=== PATIENT | female | born 1975 | race Caucasian/White ===

== ENCOUNTER → 2017-06-05 | Outpatient (CLI) | payer BC ==
--- NOTE | 2017-06-08 17:03 | Diagnostic Imaging Report ---
Bilateral screening mammogram 2D views with tomosynthesis. The current study was also evaluated with a Computer Aided Detection (CAD) system. INDICATION: Screening. No current complaints stated on the questionnaire. COMPARISON: 03/07/2016. FINDINGS: The breasts are composed of heterogeneously dense parenchyma which may decrease mammographic sensitivity. Tomographic views of the right MLO projection demonstrate oval asymmetries measuring around 8 mm each in the upper and lower posterior aspect of the right breast on image 27/100. The left breast demonstrates no definite change. IMPRESSION: There are asymmetries seen on image 27/100 in the right MLO tomographic views. Evaluation with true lateral right breast mammogram and tomography, and ultrasound is recommended for further evaluation. ACR BI-RADS Category 0: Incomplete. (Needs additional imaging evaluation). Result letter will be mailed to the patient. Note: At least 10% of breast cancer is not imaged by mammography. Dictated by: Dictated on workstation # [id number]
== END ==
LOC: RAD 14:11
PROVIDERS: ATTEND Nurse Practitioner Family
DX: Z12.31 Encounter for screening mammogram for malignant neoplasm of breast (principal)
CPT/HCPCS: 77067

== ENCOUNTER → 2017-06-19 | Outpatient (CLI) | payer BC ==
--- NOTE | 2017-06-19 09:00 | Diagnostic Imaging Report ---
EXAMINATION: Right breast diagnostic mammogram and tomography. INDICATION: Asymmetries along the right lower aspect of the right ML view. The current study was also evaluated with a Computer Aided Detection (CAD) system. FINDINGS: In the lateral projection the previously seen asymmetries on the MLO view are not well seen. This may relate to summation artifact of the relatively dense background parenchyma. IMPRESSION: No definite underlying lesion is seen in the true lateral projection. Ultrasound evaluation pending. BI-RADS 0. ACR BI-RADS Category 0: Incomplete. (Needs additional imaging evaluation). Result letter will be mailed to the patient. Note: At least 10% of breast cancer is not imaged by mammography. Dictated by: Dictated on workstation # [id number]
--- NOTE | 2017-06-19 17:40 | Diagnostic Imaging Report ---
EXAMINATION: Right breast ultrasound. INDICATION: Asymmetries in the upper and lower aspects of the right breast. FINDINGS: The four quadrants and retroareolar region of the right breast were scanned with no underlying abnormality seen. IMPRESSION: Negative study. The asymmetries in the upper and lower aspects of the right breast are probably related to summation artifact of parenchyma. A six-month followup mammogram is recommended to reevaluate. ACR BI-RADS Category 3: Probably benign findings. Result letter will be mailed to the patient. Note: At least 10% of breast cancer is not imaged by mammography. Dictated by: Dictated on workstation # [id number]
== END ==
LOC: RAD 08:38
PROVIDERS: ATTEND Family Medicine
DX: N64.89 Other specified disorders of breast (principal)
CPT/HCPCS: 76641

== ENCOUNTER → 2018-01-04 | Outpatient (CLI) | payer BC ==
--- NOTE | 2018-01-04 20:16 | Diagnostic Imaging Report ---
INDICATION: Six-month follow-up right breast densities. Correlation is made with prior exams from 06/05/2017 and 03/07/2016. The current study was also evaluated with a Computer Aided Detection (CAD) system. FINDINGS: CC, MLO, and mediolateral views of the right breast are obtained using 3D mammography. Right breast is heterogeneously dense, limiting the sensitivity of mammography. The density noted in the superior and inferior aspect of the right breast best seen on the MLO view is not appreciated on today's study and most likely represents superimposed tissue. No mass or malignant-appearing microcalcifications are seen. The right axilla is unremarkable. IMPRESSION: No mammographic features suspicious for malignancy. Patient may return to routine annual screening mammography in May 2018. ACR BI-RADS Category 1: Negative. Result letter will be mailed to the patient. Note: At least 10% of breast cancer is not imaged by mammography. Dictated by: Dictated on workstation # [id number]
== END ==
LOC: RAD 12:44
PROVIDERS: ATTEND Nurse Practitioner Family
DX: R92.2 Inconclusive mammogram (principal)

== ENCOUNTER → 2018-08-12 | Outpatient (CLI) | payer BC ==
--- NOTE | 2018-08-12 12:30 | Diagnostic Imaging Report ---
INDICATION: Routine screening. COMPARISON is made with prior mammogram from 06/05/2017 and 03/07/2016. 2D and 3D bilateral screening mammography was performed with CAD. Both breasts are heterogeneously dense, limiting the sensitivity of mammography. The parenchymal pattern appears stable. No new mass or malignant-appearing microcalcifications are seen. The axillae are unremarkable. IMPRESSION: BI-RADS category 1. No mammographic features suspicious for malignancy are identified. ACR BI-RADS Category 1: Negative. Result letter will be mailed to the patient. Note: At least 10% of breast cancer is not imaged by mammography. Dictated by: Dictated on workstation # [id number]
== END ==
LOC: RAD 07:31
PROVIDERS: ATTEND Nurse Practitioner Family
DX: Z12.31 Encounter for screening mammogram for malignant neoplasm of breast (principal)
CPT/HCPCS: 77067

== ENCOUNTER → 2019-08-30 | Outpatient (CLI) | payer BC ==
--- NOTE | 2019-08-30 12:43 | Diagnostic Imaging Report ---
Indication: Routine screening. Comparison is made with prior mammogram from 08/12/2018 and 06/05/2017. 2-D and 3-D bilateral screening mammography was performed with computer aided detection. Both breasts remain heterogeneously dense, limiting the sensitivity of mammography. The overall parenchymal pattern appears stable. No mass or malignant-appearing microcalcifications are seen. The axillae are unremarkable. IMPRESSION: BI-RADS Category 1 No mammographic features suspicious for malignancy are identified. ACR BI-RADS Category 1: Negative. Result letter will be mailed to the patient. Note: At least 10% of breast cancer is not imaged by mammography. Dictated by: Dictated on workstation # [id number]
== END ==
LOC: RAD 07:52
PROVIDERS: ATTEND Nurse Practitioner Family
DX: Z12.31 Encounter for screening mammogram for malignant neoplasm of breast (principal)
CPT/HCPCS: 77067

== ENCOUNTER → 2020-10-23 | Outpatient (CLI) | payer BC ==
--- NOTE | 2020-10-24 09:40 | Diagnostic Imaging Report ---
INDICATION: Routine screening. COMPARISON: 08/30/2019 and 08/12/2018. TECHNIQUE: 2D and 3D bilateral screening mammography was performed with CAD. FINDINGS: Both breasts are heterogeneously dense, limiting the sensitivity of mammography. The parenchymal pattern is stable. No mass or malignant appearing microcalcifications are seen. The axillae are unremarkable. IMPRESSION: No mammographic features suspicious for malignancy are identified. ACR BI-RADS Category 1: Negative. Result letter will be mailed to the patient. Note: At least 10% of breast cancer is not imaged by mammography. Dictated by: Dictated on workstation # [id number]
== END ==
LOC: RAD 12:56
PROVIDERS: ATTEND Family Medicine
DX: Z12.31 Encounter for screening mammogram for malignant neoplasm of breast (principal)
CPT/HCPCS: 77063; 77067

== ENCOUNTER 2021-04-14 04:08 | Emergency (ER) | payer BC ==
[~2021-04-14] VITALS: Ht 170.1 cm; Wt 88.4 kg
[2021-04-14] MEDS ORDERED: KETOROLAC 30 MG/ML VIAL IVP STA (04:40)
[2021-04-14 04:42] LABS: BILIRUBIN,URINE NEGATIVE (NEGATIVE); COLOR,URINE RED; GLUCOSE, URINE (UA) NEGATIVE (NEGATIVE); KETONES,URINE 1+ (NEGATIVE); LEUKOCYTE ESTERASE ,URINE 2+ (NEGATIVE); NITRITE,URINE POSITIVE (NEGATIVE); PH,URINE 6.5 (5-9); PROTEIN,URINE 3+ (NEGATIVE)
[2021-04-14] MEDS ORDERED: LACTATED RINGERS 1,000 ML IV ONE ×2 (04:45→06:45)
[2021-04-14] MEDS ORDERED: ONDANSETRON 4 MG/2 ML (SDV) Z0FRAN IVP ONE (04:45)
--- NOTE | 2021-04-14 04:47 | ED GU-Female ---
General Chief Complaint: Abdominal/GI Problems Stated Complaint: BLOOD IN URINE/L SIDE BACK PAIN Source: patient History of Present Illness Date Seen by Provider: April 14, 2021 Time Seen by Provider: 04:30 Initial Comments PT ARRIVES VIA POV FROM HOME PT STATES ON THURSDAY MORNING AROUND 10 AM, SHE NOTICED BLOOD AND "TISSUE" IN HER URINE WENT TO [facility] YESTERDAY AFTER NOON FOR CONTINUED BLOOD AND TISSUE IN HER URINE, HAD LAB AND UA DONE, AND WAS PLACED ON MACROBID. HAS HAD ONE DOSE OF THE ANTIBIOTIC AROUND 0345 THIS AM, SHE WOKE UP WITH LEFT FLANK PAIN NO RADIATION OF PAIN HAS HAD NAUSEA, NO VOMITING NO FEVER/SWEATS/CHILLS THIS AM IT WAS DIFFICULT TO VOID--HAD URGE, BUT COULD NOT GO INITIALLY. NO PAIN/BURNING ON URINATION HAS NOT TAKEN ANYTHING FOR PAIN NO HISTORY OF SIMILAR NO PRIOR ABDOMINAL SURGERIES LMP 04/03/21. NORMAL. NO CONTROL PCP: DR. BURGER Allergies and Home Medications Allergies Coded Allergies: No Known Drug Allergies (Unverified , 04/14/21) Patient Home Medication List Home Medication List Reviewed: Yes Review of Systems Review of Systems Constitutional: no symptoms reported, weight loss (INTENTIONAL WEIGHT LOSS OF 40 LBS IN LAST 4-5 MONTHS) Respiratory: no symptoms reported Cardiovascular: no symptoms reported Gastrointestinal: see HPI, nausea Genitourinary: see HPI, flank pain, hematuria LMP: April 03, 2021 Musculoskeletal: see HPI, back pain Skin: no symptoms reported Psychiatric/Neurological: No Symptoms Reported Past Lfddhya-Othqof-Dnrmbd Hx Past Med/Social Hx: Reviewed and Corrections made Patient Social History Alcohol Use: Denies Use Drug of Choice: DENIES Smoking Status: Never a Smoker Past Medical History Surgeries: No Respiratory: No Cardiac: No Neurological: No : No Reproductive Disorders: No Genitourinary: No Gastrointestinal: No Musculoskeletal: Yes (L3 COMPRESSION FX--NO TREATMENT) Fractures Endocrine: No HEENT: No Cancer: No Psychosocial: No Integumentary: No Blood Disorders: No Physical Exam Vital Signs Vital Signs - First Documented 04/14/21 04/14/21 04:28 08:51 Temp 36.7 Pulse 90 Resp 20 B/P (MAP) 154/92 (112) Pulse Ox 98 O2 Delivery Room Air Capillary Refill : Height, Weight, BMI Height: '" Weight: lbs. oz. kg; BMI Method: General Appearance: WD/WN, no apparent distress, other (DOES NOT APPEAR TO BE IN ANY DISCOMFORT OR DISTRESS. WALKS UPRIGHT AND MOVES WITHOUT DIFFICULTY) Cardiovascular: regular rate, rhythm, no murmur Respiratory: normal breath sounds Gastrointestinal: normal bowel sounds, soft, no organomegaly, no pulsatile mass; No distended, No guarding, No rebound; tenderness (VERY MILD LEFT FLANK TENDERNESS); No hernia, No mass Back: no vertebral tenderness, CVA tenderness (L) Extremities: normal inspection Neurologic/Psychiatric: nutrition intern II-XII nml as tested, no motor/sensory deficits, alert, normal mood/affect, oriented x 3 Skin: normal color, warm/dry; No rash Progress/Results/Core Measures Suspected Sepsis SIRS Temperature: Pulse: Respiratory Rate: Laboratory Tests 04/14/21 04:48: White Blood Count 10.0 Blood Pressure / Mean: Laboratory Tests 04/14/21 04:48: Creatinine 0.82, Platelet Count 287, Total Bilirubin 0.3 Results/Orders Lab Results Laboratory Tests Test 04/14/21 04:33 04/14/21 04:40 04/14/21 04:48 Range/Units Urine Color RED H Urine Clarity BLOODY H Urine pH 6.5 5-9 Urine Specific [place] 1.020 1.016-1.022 Urine Protein 3+ H NEGATIVE Urine Glucose (UA) NEGATIVE NEGATIVE Urine Ketones 1+ H NEGATIVE Urine Nitrite POSITIVE H NEGATIVE Urine Bilirubin NEGATIVE NEGATIVE Urine Urobilinogen 2.0 < = 1.0 MG/DL Urine Leukocyte Esterase 2+ H NEGATIVE Urine RBC (Auto) 3+ H NEGATIVE Urine RBC TNTC H /HPF Urine WBC 5-10 H /HPF Urine Squamous Epithelial Cells 2-5 /HPF Urine Crystals NONE /LPF Urine Bacteria FEW H /HPF Urine Casts NONE /LPF Urine Mucus NEGATIVE /LPF Urine Culture Indicated YES Urine Test NEGATIVE NEGATIVE White Blood Count 10.0 4.3-11.0 10^3/uL Red Blood Count 4.69 3.80-5.11 10^6/uL Hemoglobin 12.9 11.5-16.0 g/dL Hematocrit 41 35-52 % Mean Corpuscular Volume 87 80-99 fL Mean Corpuscular Hemoglobin 28 25-34 pg Mean Corpuscular Hemoglobin Concent 32 32-36 g/dL Red Cell Distribution Width 13.9 10.0-14.5 % Platelet Count 287 130-400 10^3/uL Mean Platelet Volume 11.2 9.0-12.2 fL Immature Granulocyte % (Auto) 0 % Neutrophils (%) (Auto) 63 42-75 % Lymphocytes (%) (Auto) 29 12-44 % Monocytes (%) (Auto) 6 0-12 % Eosinophils (%) (Auto) 1 0-10 % Basophils (%) (Auto) 1 0-10 % Neutrophils # (Auto) 6.3 1.8-7.8 10^3/uL Lymphocytes # (Auto) 2.9 1.0-4.0 10^3/uL Monocytes # (Auto) 0.6 0.0-1.0 10^3/uL Eosinophils # (Auto) 0.1 0.0-0.3 10^3/uL Basophils # (Auto) 0.1 0.0-0.1 10^3/uL Immature Granulocyte # (Auto) 0.0 0.0-0.1 10^3/uL Sodium Level 141 135-145 MMOL/L Potassium Level 3.8 3.6-5.0 MMOL/L Chloride Level 107 98-107 MMOL/L Carbon Dioxide Level 23 21-32 MMOL/L Anion Gap 11 5-14 MMOL/L Blood Urea Nitrogen 14 7-18 MG/DL Creatinine 0.82 0.60-1.30 MG/DL Estimat Glomerular Filtration Rate > 60 BUN/Creatinine Ratio 17 Glucose Level 100 70-105 MG/DL Calcium Level 8.8 8.5-10.1 MG/DL Corrected Calcium 8.8 8.5-10.1 MG/DL Total Bilirubin 0.3 0.1-1.0 MG/DL Aspartate Amino Transf (AST/SGOT) 63 H 5-34 U/L Alanine Aminotransferase (ALT/SGPT) 14 0-55 U/L Alkaline Phosphatase 57 40-136 U/L Total Protein 6.7 6.4-8.2 GM/DL Albumin 4.0 3.2-4.5 GM/DL Amylase Level 56 25-125 U/L Lipase 14 8-78 U/L My Orders Orders - MORRIS CARRILLO DO Ua Culture If Indicated (04/14/21 04:32) Ed Iv/Invasive Line Start (04/14/21 04:40) Ct Abd/Pelvis Wo(Kidney Stone) (04/14/21 04:40) Abdomen/Kub 1view (04/14/21 04:40) Amylase (04/14/21 04:40) Cbc With Automated Diff (04/14/21 04:40) Comprehensive Metabolic Panel (04/14/21 04:40) Hcg,Qualitative Urine (04/14/21 04:40) Lipase (04/14/21 04:40) Ed Iv/Invasive Line Start (04/14/21 04:40) Lactated Ringers (Lr 1000 Ml Iv Solution (04/14/21 04:45) Ondansetron Injection (Zofran Injectio (04/14/21 04:45) Ketorolac Injection (Toradol Injection) (04/14/21 04:40) Urine Culture (04/14/21 04:33) Ceftriaxone For Iv Use (Rocephin For I (04/14/21 05:30) Ed Iv/Invasive Line Start (04/14/21 06:41) Lactated Ringers (Lr 1000 Ml Iv Solution (04/14/21 06:45) Medications Given in ED Current Medications Medications Dose Ordered Sig/Ana Route Start Time Stop Time Status Last Admin Dose Admin Lactated Ringer's 1,000 ml @ 0 mls/hr Q0M ONCE IV 04/14/21 06:45 04/14/21 06:46 DC 04/14/21 06:51 1,000 MLS/HR Vital Signs/I&O 04/14/21 08:51 Pulse 85 Resp 14 B/P (MAP) 150/92 Pulse Ox 98 O2 Delivery Room Air Capillary Refill : Progress Note : Progress Note GIVEN IV FLUIDS, TORADOL AND ZOFRAN WITH COMPLETE RELIEF OF SYMPTOMS GAVE ROCEPHIN FOR UTI NO DETERIORATION IN PT'S CONDITION DURING ER STAY Diagnostic Imaging Comments KUB--NON-SPECIFIC BOWEL GAS PATTERN, LEFT SIDED ABDOMINAL MASS. PENDING RADIOLOGIST REVIEW CT ABDOMEN/PELVIS--15 X 10.5 X 11.5 CM SOLID LEFT RENAL MASS WITH LARGE CENTRAL SCAR WITH CALCIFICATIONS, LARGE PERIRENAL TRAINING VESSELS, BLOOD PRODUCTS IN LEFT RENAL COLLECTING SYSTEM PRODUCING MILD LEFT HYDRONEPHROSIS. DIFFERENTIAL DX ONCOCYTOMA VS RENAL CELL CARCINOMA--PER [facility] VIA FAX AT 0603 Reviewed: Reviewed by Oh Departure Communication (Admissions) 0610--CALLED [facility], PT/FAMILY PREFERENCE. XRAY DEPT IS CLOUDING IMAGES TO [facility]. THEY WILL CALL BACK 0609--[facility] CALLED BACK, PT HAS BEEN ACCEPTED FOR ADMIT BY DR. WOMACK Impression Primary Impression: LARGE LEFT RENAL MASS Additional Impression: Urinary tract infection with hematuria Disposition: XFER SHT-TRM HOSP Condition: Improved Transfer Transfer Reason: Exceeds level of care Transfer Facility: Method of Transfer: EMS Departure-Patient Inst. Referrals: LIBRA BURGER MD (PCP/Family) Primary Care Physician MORRIS CARRILLO DO April 14, 2021 04:46
[2021-04-14 04:51] LABS: BACTERIA,URINE FEW /HPF; RBC,URINE TNTC /HPF
[2021-04-14 04:52] LABS: CLARITY,URINE BLOODY
[2021-04-14 05:01] LABS: BASOPHILS # (AUTO) 0.1 10^3/uL (0.0-0.1); BASOPHILS % (AUTO) 1 % (0-10); EOSINOPHILS # (AUTO) 0.1 10^3/uL (0.0-0.3); EOSINOPHILS % (AUTO) 1 % (0-10); HEMATOCRIT 41 % (35-52); HEMOGLOBIN 12.9 g/dL (11.5-16.0); LYMPHOCYTES # (AUTO) 2.9 10^3/uL (1.0-4.0); LYMPHOCYTES % (AUTO) 29 % (12-44); MEAN CORPUSCULAR HEMOGLOBIN 28 pg (25-34); MEAN CORPUSCULAR HGB CONC 32 g/dL (32-36); MEAN CORPUSCULAR VOLUME 87 fL (80-99); MEAN PLATELET VOLUME 11.2 fL (9.0-12.2); MONOCYTES # (AUTO) 0.6 10^3/uL (0.0-1.0); MONOCYTES % (AUTO) 6 % (0-12); NEUTROPHILS # (AUTO) 6.3 10^3/uL (1.8-7.8); NEUTROPHILS % (AUTO) 63 % (42-75); PLATELET COUNT 287 10^3/uL (130-400)
[2021-04-14 05:16] LABS: CHLORIDE 107 MMOL/L (98-107); POTASSIUM 3.8 MMOL/L (3.6-5.0); SODIUM 141 MMOL/L (135-145)
[2021-04-14 05:17] LABS: AMYLASE 56 U/L (25-125); CALCIUM 8.8 MG/DL (8.5-10.1)
[2021-04-14 05:18] LABS: GLUCOSE 100 MG/DL (70-105); TOTAL PROTEIN 6.7 GM/DL (6.4-8.2)
[2021-04-14 05:19] LABS: CARBON DIOXIDE 23 MMOL/L (21-32)
[2021-04-14 05:20] LABS: BILIRUBIN,TOTAL 0.3 MG/DL (0.1-1.0)
[2021-04-14 05:22] LABS: ALKALINE PHOSPHATASE 57 U/L (40-136); CREATININE SERUM 0.82 MG/DL (0.60-1.30); GFR ESTIMATED > 60
[2021-04-14 05:23] LABS: BUN/CREATININE RATIO 17
[2021-04-14 05:25] LABS: ALANINE AMINOTRANSFERASE 14 U/L (0-55); LIPASE 14 U/L (8-78)
[2021-04-14] MEDS ORDERED: cefTRIAXone FOR IV USE 1,000 MG in WATER (STERILE) FOR INJECTION 10 ML IV ONE (05:30)
--- NOTE | 2021-04-14 06:36 | Diagnostic Imaging Report ---
2 AP views of the abdomen. INDICATION: Evaluate for renal calculi. Flank pain. Hematuria. Correlation made to CT examination from earlier the same day. Findings: Prominent left renal shadow is demonstrated compatible with the patient's known renal mass. The calcifications along the anterior margins of the mid aspect of the mass are partially visualized but less well delineated on the prior CT. There are no findings to suggest a stone along the course of the ureters. The bowel gas pattern is nonobstructive. The lung bases are clear. There is a rotatory dextroscoliosis. IMPRESSION: 1. Partial visualization of the calcifications associated with the patient's known left sided renal mass. Prominent inferior margins of the renal shadow on the left are noted. There is no stone evident on the course of the ureters. The bowel gas pattern appears nonobstructed. Dictated by: Dictated on workstation # [id number]
--- NOTE | 2021-04-14 07:41 | Diagnostic Imaging Report ---
PROCEDURE: CT urinary tract, rule out kidney stone. TECHNIQUE: Multiple contiguous axial images were obtained through the abdomen and pelvis without the use of intravenous contrast. Auto Exposure Controls were utilized during the CT exam to meet ALARA standards for radiation dose reduction. INDICATION: Flank pain and hematuria. No relevant comparison is available. FINDINGS: The lung bases appear clear without infiltrate or effusion. There is no suspicious basilar pulmonary nodule. There is no pericardial collection. The noncontrast appearance of the liver unremarkable. The gallbladder is nondilated without radiodense gallstones or findings of biliary dilatation. The pancreas appears unremarkable. The spleen is normal in size. There are no findings of an adrenal mass. Right kidney nonobstructed and unremarkable. The left kidney demonstrates a large solid left renal mass that measures up to 15 cm in craniocaudal dimensions by axial dimensions of 10.5 x 1.5 cm. There appears to be a low-density central scar as well as central calcifications. Note is made of some prominent perirenal vasculature which may be arterial or draining veins. There is hyperdensity demonstrated within the left-sided collecting system that additionally likely reflects some blood products. There is mild left hydronephrosis particularly within the upper aspect of the left kidney. There are no findings of bowel obstruction. The appendix is normal in caliber. There is moderate stool within the colon. There is no free fluid within the pelvis. The bladder nondistended. The uterus and adnexa unremarkable by CT. Pathologically enlarged lymph nodes are evident. Aorta is normal in caliber. There is rotatory dextroscoliosis about the lumbar spine with apex at L2-L3. Superior endplate height loss at L3 secondary to these degenerative changes with associated Schmorl's node. No acute osseous abnormality demonstrated. There is no suspicious lytic or blastic lesion. IMPRESSION: 1. Large solid left renal mass involving the mid and lower aspect of the left kidney. The mass measures up to 15 x 10.5 x 11.5 cm. There appears to be a central scar and calcifications. There is prominent perirenal vascularity. There is blood within the left collecting system and mild hydronephrosis. Differential considerations include a renal cell carcinoma or possibly an oncocytoma. 2. No findings at this time by noncontrast CT to suggest metastatic disease. 3. I agree with the preliminary [facility] report. Dictated by: Dictated on workstation # [id number]
[2021-04-14 08:51] VITALS: BP 150/92
== END 2021-04-14 08:55 | disposition short-term general hospital (02) ==
LOC: EDUNIT# 04:08 → ER 04:10
DX: N39.0 Urinary tract infection, site not specified (principal); N28.89 Other specified disorders of kidney and ureter
CPT/HCPCS: 36415; 74018; 74176; 80053; 81000; 82150; 83690; 84703; 85025; 87088

== ENCOUNTER → 2021-07-11 | Outpatient (CLI) | payer BC ==
--- NOTE | 2021-07-11 13:06 | Diagnostic Imaging Report ---
INDICATION: Routine screening. Comparison is made with prior mammogram from 10/23/2020 and 08/30/2019. 2-D and 3-D bilateral screening mammography was performed with CAD. Both breasts are heterogeneously dense, limiting the sensitivity of mammography. There is a density in the lateral right breast posterior depth which appears more prominent than prior exam. No definite correlate on the MLO view is seen although there is some areas of density in the far posterior and slightly upper right breast. Additional views of these areas are recommended. Left breast is unremarkable. There are benign calculus locations. No malignant-appearing microcalcifications are seen. Axillae are unremarkable. IMPRESSION: BI-RADS Category 0 Right breast density. Additional views are recommended for further evaluation. ACR BI-RADS Category 0: Incomplete. (Needs additional imaging evaluation). Result letter will be mailed to the patient. Note: At least 10% of breast cancer is not imaged by mammography. Dictated by: Dictated on workstation # [id number]
== END ==
LOC: RAD 10:30
PROVIDERS: ATTEND Family Medicine
DX: Z12.31 Encounter for screening mammogram for malignant neoplasm of breast (principal)
CPT/HCPCS: 77063; 77067

== ENCOUNTER → 2021-07-19 | Outpatient (CLI) | payer BC ==
--- NOTE | 2021-07-19 14:35 | Diagnostic Imaging Report ---
INDICATION: Right breast density. Patient presents for additional views. Correlation is made with screening study from 07/11/2021. Unilateral right 2-D and 3-D diagnostic mammography was performed. This included spot compression CC and MLO as well as ML views of and a conventional 90 degree lateral view. Right breast is heterogeneously dense. There is some residual density in the upper outer right breast posterior depth approximately 10 to 12 cm from the nipple. This could represent fibroglandular tissue. Further evaluation with ultrasound is recommended. IMPRESSION: BI-RADS 0 There is some residual density in the upper outer right breast posterior depth, indeterminate. Further evaluation with ultrasound is recommended and will be performed today. ACR BI-RADS Category 0: Incomplete. (Needs additional imaging evaluation). Result letter will be mailed to the patient. Note: At least 10% of breast cancer is not imaged by mammography. Dictated by: Dictated on workstation # [id number]
--- NOTE | 2021-07-19 15:38 | Diagnostic Imaging Report ---
INDICATION: Right breast density. CORRELATION is made with diagnostic mammogram earlier the same day and screening mammogram from 07/11/2021. Sonographic interrogation of the upper outer right breast was performed. There is a slightly irregular region of hypoechogenicity at the 11:00 location of the right breast, 10 cm from the nipple. This measures 7 mm x 7 mm x 8 mm. There is posterior acoustic shadowing but no internal vascularity. It is uncertain if this accounts for the mammographic density. No other abnormalities are detected. IMPRESSION: BI-RADS Category 4 Irregular region of hypoechogenicity at the 11:00 location right breast, 10 cm from the nipple with posterior acoustic shadowing. Small breast neoplasm cannot be entirely excluded. Tissue sampling is recommended. This would be amenable to ultrasound-guided core biopsy. ACR BI-RADS Category 4: Suspicious abnormality. Result letter will be mailed to the patient. Note: At least 10% of breast cancer is not imaged by mammography. Dictated by: Dictated on workstation # [id number]
== END ==
LOC: RAD 14:15
PROVIDERS: ATTEND Family Medicine
DX: R92.2 Inconclusive mammogram (principal)
CPT/HCPCS: 76642; 77065; G0279

== ENCOUNTER → 2021-07-25 | Outpatient (CLI) | payer BC ==
[~2021-07-25] VITALS: Ht 170.2 cm; Wt 88.4 kg
[~2021-07-25] MED LIST: LIDOCAINE 1% INJ 20 ML 20 ML VIAL INJ ONE; LIDOCAINE 1% INJ 20 ML 20 ML VIAL ONE
--- NOTE | 2021-07-25 10:16 | Diagnostic Imaging Report ---
Indication: Right breast lesion. Patient presents for ultrasound-guided biopsy. Patient brought to the sonographic suite placed on table in the supine position. Ultrasound imaging of the right breast was performed to evaluate appropriate entry site. Right breast was then prepped and draped in usual sterile fashion. Small amount 1% lidocaine utilized for local anesthesia. A total of 4 core biopsies were obtained of the area of hypoechogenicity and shadowing at the 11:00 location right breast, 9 cm from the nipple utilizing the 13-gauge hand held mammotome vacuum-assisted device. A marker clip was then deployed. Hemostasis was obtained using manual compression. Patient tolerated procedure well and left the department in stable condition. IMPRESSION: Successful ultrasound-guided core biopsy of the area of hypoechogenicity 11:00 location right breast, 9 cm from the nipple utilizing the hand-held vacuum-assisted mammotome device. Pathology results are currently pending. Dictated by: Dictated on workstation # [id number]
--- NOTE | 2021-07-25 12:01 | Diagnostic Imaging Report ---
INDICATION: Status post right breast ultrasound-guided biopsy. Unilateral right 2-D CC and ML mammography was performed after patient underwent ultrasound-guided biopsy. There is a marker clip in the upper and outer aspect of the right breast which is approximately 8 cm from the nipple. The right breast is heterogeneously dense. IMPRESSION: Marker clip upper outer right breast, mid to posterior depth. Dictated by: Dictated on workstation # [id number]
== END ==
LOC: RAD 08:30
PROVIDERS: ATTEND Family Medicine
DX: R92.2 Inconclusive mammogram (principal)
CPT/HCPCS: 19083; 77065; A4648; G0279

== ENCOUNTER → 2021-12-20 | Outpatient (CLI) | payer BC ==
[~2021-12-20] VITALS: Ht 172 cm; Wt 94.0 kg
[~2021-12-20] MED LIST changes: +CATHETER FLUSH 10 ML SYR IV PRN; -LIDOCAINE 1% INJ 20 ML 20 ML VIAL INJ ONE; -LIDOCAINE 1% INJ 20 ML 20 ML VIAL ONE
[2021-12-20 12:56] VITALS: BP 158/107
--- NOTE | 2021-12-20 12:56 | Cardiology Stress Test Report ---
Stress Test Report Date of Procedure/Referring: Date of Procedure: Dec 20, 2021 PCP Mercy Hood MD Admitting Physician Dania Gonzalez MD Indications: CP Baseline Heart Rate: 80 Baseline Blood Pressure: Blood Pressure Systolic: 158 Blood Pressure Diastolic: 107 Baseline EKG: Baseline EKG: NSR Summary: After explaining the procedure and details to the patient, she signed the consent and was brought to the stress nuclear laboratory. Patient exercised on standard Niranjan protocol, EKG, heart rate and blood pressure were monitored continuously, resting and stress doses of radio tracer were injected, imaging was acquired and reviewed in the short axis, horizontal long axis and vertical long axis views Patient was able to exercise for a total of 10 minutes on Niranjan protocol, METs 11.7 Maximum heart rate 166 Maximum blood pressure 191/90 Stress EKG, Minimal nondiagnostic changes Recovery EKG, Return to baseline TID: 1.17 SSS: 7 SDS: 5 EF: 69 Conclusion: 1. Good exercise tolerance for a total of 10 minutes, 11.7 METS on standard Niranjan protocol achieving 90% of maximal expected heart rate 2. Appropriate heart rate response to exercise with mild hypertensive response to exercise with peak blood pressure 191/90 return to baseline during recovery 3. Minimal nondiagnostic EKG changes with exercise return to baseline during recovery 4. Breast attenuation affecting the quality of the images with mild decrease uptake involving the mid to apical anterior septum with subtle reversibility, most probably due to the breast attenuation. No significant ischemia or infarction was noted 5. Normal left ventricular size, EF 69% MERCY HOOD MD Dec 20, 2021 12:56
== END ==
LOC: CARD 07:15
PROVIDERS: ATTEND Internal Medicine Cardiovascular Disease
DX: I10 Essential (primary) hypertension (principal); R07.9 Chest pain, unspecified
CPT/HCPCS: 78452; 93017; 93306; A9502